=== PATIENT | female | born 2000 | race Two or more races ===

== ENCOUNTER 2021-01-26 19:07 | Emergency (ER) | payer BC ==
--- NOTE | 2021-01-26 19:23 | EDM.PDOC ---
ED HPI GENERAL MEDICAL PROBLEM - General Chief Complaint: Back Pain or Injury Stated Complaint: lower left side back and leg pain Time Seen by Provider: 01/26/21 19:22 - History of Present Illness INITIAL COMMENTS - FREE TEXT/NARRATIVE: 20-year-old female presents the emergency room with back pain. This back pain has been going on for 8 days now. It started after the patient was lifting someone and apparently did not do it correctly. Her pain is localized to the left side of her back and extends down her buttocks and into her thigh but does not go below the knee. She has nothing that sounds like radicular symptoms with this. She has had no loss of bowel or bladder control she said no burning or frequency with urination. The patient is uncertain if she is . Patient denies any other complaints at this time. Treatments REAGENT TENDER: Reports: Acetaminophen, NSAIDS Left Flank Pain Score (Numeric/FACES): 8 - Related Data Allergies Allergy/AdvReac Type Severity Reaction Status Date / Time Penicillins Allergy Rash Verified 01/26/21 19:15 Home Meds: Home Meds Loratadine [Claritin] 10 mg PO BEDTIME PRN 01/26/21 [History] Naproxen 500 mg PO BID #20 tablet 01/26/21 [Rx] Orphenadrine [Norflex] 100 mg PO BID #14 tab 01/26/21 [Rx] ED ROS GENERAL - Review of Systems Review Of Systems: See Below Constitutional: Reports: No Symptoms HEENT: Reports: No Symptoms Respiratory: Reports: No Symptoms Cardiovascular: Reports: No Symptoms. Denies: Chest Pain GI/Abdominal: Reports: No Symptoms. Denies: Abdominal Pain : Reports: No Symptoms Musculoskeletal: Reports: Back Pain, Muscle Pain. Denies: Neck Pain, Shoulder Pain Neurological: Reports: No Symptoms Psychiatric: Reports: No Symptoms ED EXAM, GENERAL - Physical Exam Exam: See Below Exam Limited By: No Limitations General Appearance: Alert, No Apparent Distress Head: Atraumatic, Normocephalic Neck: Normal Inspection, Supple, Non-Tender, Full Range of Motion Respiratory/Chest: No Respiratory Distress, Lungs Clear, Normal Breath Sounds Cardiovascular: Regular Rate, Rhythm, No Edema, No Murmur GI/Abdominal: Normal Bowel Sounds, Soft, Non-Tender Back Exam: Full Range of Motion, Other (Some muscle spasm in the left paraspinous muscles from the lower thoracic area on down around the buttocks and into the thigh. Straight leg raises show localized back pain and buttocks and thigh tightness she has no neurologic deficits in her extremities.). No: CVA Tenderness (L), CVA Tenderness (R), Vertebral Tenderness Course - Vital Signs Last Recorded V/S: Last Vital Signs Temp 36.2 C 01/26/21 19:19 Pulse 87 01/26/21 19:19 Resp 18 01/26/21 19:19 BP 110/68 01/26/21 19:19 Pulse Ox 100 01/26/21 19:19 - Orders/Labs/Meds Labs: Laboratory Tests 01/26/21 01/26/21 Range/Units 19:35 19:35 Urine Color Yellow (Yellow) Urine Appearance Clear (Clear) Urine pH 7.0 (5.0-8.0) Ur Specific Jay Em 1.025 (1.005-1.030) Urine Protein Negative (Negative) Urine Glucose (UA) Negative (Negative) Urine Ketones Negative (Negative) Urine Occult Blood Trace-intact H (Negative) Urine Nitrite Negative (Negative) Urine Bilirubin Negative (Negative) Urine Urobilinogen 0.2 (0.2-1.0) Ur Leukocyte Esterase Negative (Negative) Urine RBC 0-5 (0-5) /hpf Urine WBC 0-5 (0-5) /hpf Ur Epithelial Cells 0-5 (0-5) /hpf Urine Bacteria Rare (FEW) /hpf Urine Mucus Not seen (FEW) /hpf Urine HCG, Qual Negative (NEGATIVE) Meds: Medications Discontinued Medications Generic Name Dose Route Start Last Admin Trade Name Kia PRN Reason Stop Dose Admin Ketorolac Tromethamine 30 mg 01/26/21 20:05 Ketorolac 30 Mg/Ml Sdv IM 01/26/21 20:06 ONETIME ONE - Re-Assessments/Exams Free Text/Narrative Re-Assessment/Exam: 01/26/21 20:06 Urine hCG is negative urinalysis is not suggestive of infectious process. We will start the patient on Norflex and naproxen. Departure - Departure Time of Disposition: 20:09 Disposition: Home, Self-Care 01 Clinical Impression: Low back strain - Discharge Information Referrals: Apurva Jarrell PA-C [Primary Care Provider] - Forms: ED Department Discharge Additional Instructions: Return to the emergency room with any questions problems or worsening symptoms. Follow-up with your regular healthcare provider at the end of this next week if needed. You have been started on 2 medications the first 1 is Naprosyn. This is a Motrin like medication do not take it with Motrin. Take 1 twice daily with meals. You have been started on orphenadrine, or Norflex. This is a muscle relaxant take it twice daily in the beginning and then after you have noticed significant improvement take 1 at night only. Use caution driving or operating hazardous equipment while taking this medication as it can cause sedation. Sepsis Event Note (ED) - Evaluation Sepsis Screening Result: No Definite Risk - Focused Exam Vital Signs: Vital Signs Temp Pulse Resp BP Pulse Ox 01/26/21 19:19 36.2 C 87 18 110/68 100
[2021-01-26] MEDS ORDERED: Ketorolac 30 MG/ML SDV IM ONE (20:05)
== END 2021-01-26 20:24 | disposition home or self-care (01) ==
LOC: JD.ED 19:07
DX: S39.012A Strain of muscle, fascia and tendon of lower back, initial encounter (principal); Z88.0 Allergy status to penicillin; X50.0XXA Overexertion from strenuous movement or load, initial encounter
CPT/HCPCS: 81001; 81025; 96372; 99283; J1885

== ENCOUNTER 2022-06-25 07:08 | Inpatient (IN) | payer BC ==
[~2022-06-25 07:08] MED LIST: Bupivacaine 0.25% 10 ML SDV ONE; Lidocaine 1% 10 ML MDV ONE
[2022-06-25] MEDS ORDERED: Lidocaine 1% 50 ML MDV INJECT SCH (15:40)
[2022-06-25] MEDS ORDERED: Nalbuphine HCl 10 MG/ 1ML Amp IVPUSH PRN (15:40)
[2022-06-25] MEDS ORDERED: Sodium Chloride 0.9% 10 ML Syringe FLUSH PRN (15:40)
[2022-06-25] MEDS ORDERED: Ondansetron 4 MG/2 ML SDV IVPUSH PRN (15:40)
[2022-06-25] MEDS ORDERED: Oxytocin/Lactated Ringers 10 UNIT/1,000 ML BAG IV SCH ×2 (15:45)
[2022-06-25] MEDS ORDERED: Misoprostol 25 MCG (1/4 of 100 MCG) Tab VAG ONE (15:48)
[2022-06-25] MEDS: Clindamycin Phosphate in D5W 900 MG in Premix Bag 1 BAG IV SCH ×2 (16:09)
[2022-06-25] MEDS ORDERED: fentaNYL 100 MCG/2 ML SDV EPIDUR PRN (16:47)
[2022-06-25] MEDS ORDERED: diphenhydrAMINE 50 MG/ML SDV IVPUSH PRN (16:47)
[2022-06-25] MEDS ORDERED: ePHEDrine 50 MG/ML SDV IVPUSH PRN (16:47)
[2022-06-25] MEDS: Misoprostol 25 MCG (1/4 of 100 MCG) Tab VAG SCH ×2 (20:14→23:51)
[2022-06-25] MEDS ORDERED: Sodium Chloride 0.9% 10 ML Syringe FLUSH SCH (21:00)
[2022-06-25] MEDS ORDERED: Loratadine 10 MG Tab PO PRN (21:00)
[2022-06-26] MEDS: Lactated Ringers 1,000 ML IV SCH ×4 (03:14→19:56)
[2022-06-26] MEDS: Clindamycin Phosphate in D5W 900 MG in Premix Bag 1 BAG IV SCH ×6 (03:14→17:43)
[2022-06-26] MEDS: Misoprostol 25 MCG (1/4 of 100 MCG) Tab VAG SCH (03:19)
[2022-06-26] MEDS: Bupivacaine/fentaNYL/NS 100 ML Bag EPIDUR PRN ×2 (10:50→17:48)
[2022-06-26] MEDS ORDERED: Methylergonovine 0.2 MG/1 ML Amp ONE (21:53)
[2022-06-26] MEDS ORDERED: Benzocaine/Menthol 20%-0.5% Spray 78 GM Cannister TOP PRN (22:08)
[2022-06-26] MEDS ORDERED: Witch Hazel Medicated Pads 40/Jar TOP PRN (22:08)
[2022-06-26] MEDS: Ibuprofen 600 MG Tab PO PRN (23:33)
[2022-06-26] MEDS: Docusate Sodium 100 MG Cap PO PRN (23:33)
[2022-06-27] MEDS: Acetaminophen 325 MG Tab PO PRN ×3 (01:58→19:40)
[2022-06-27] MEDS ORDERED: Methylergonovine 0.2 MG/1 ML Amp IM ONE (06:01)
[2022-06-27] MEDS: Ibuprofen 600 MG Tab PO PRN ×3 (09:14→19:40)
[2022-06-27] MEDS: Prenatal Multivitamin with Calcium/Folic Acid/Iron Tab PO SCH (09:15)
[2022-06-27] MEDS: Docusate Sodium 100 MG Cap PO PRN ×2 (12:14→20:42)
[2022-06-28] MEDS: Acetaminophen 325 MG Tab PO PRN (01:26)
[2022-06-28] MEDS: Ibuprofen 600 MG Tab PO PRN ×2 (01:26→06:03)
[2022-06-28] MEDS ORDERED: Ferrous Sulfate 324 MG Tab.EC PO SCH (07:00)
[2022-06-28] MEDS: Prenatal Multivitamin with Calcium/Folic Acid/Iron Tab PO SCH (10:40)
== END 2022-06-28 10:00 | disposition home or self-care (01) | DRG 560 ==
LOC: JD.OB 14:54 → OBSVTOIN 14:54 → JD.OB 06-26 20:52
PROVIDERS: ADMIT Obstetrics & Gynecology; ATTEND Obstetrics & Gynecology
PROC: 10E0XZZ Delivery of Products of Conception, External Approach (ICD-10-PCS; principal; 2022-06-25)
PROC: 3E0R3BZ Introduction of Anesthetic Agent into Spinal Canal, Percutaneous Approach (ICD-10-PCS; 2022-06-25)
PROC: 3E0P7VZ Introduction of Hormone into Female Reproductive, Via Natural or Artificial Opening (ICD-10-PCS; 2022-06-25)
PROC: 10907ZC Drainage of Amniotic Fluid, Therapeutic from Products of Conception, Via Natural or Artificial Opening (ICD-10-PCS; 2022-06-25)
PROC: 10H07YZ Insertion of Other Device into Products of Conception, Via Natural or Artificial Opening (ICD-10-PCS; 2022-06-25)
PROC: 0KQM0ZZ Repair Perineum Muscle, Open Approach (ICD-10-PCS; 2022-06-25)
DX: O99.824 Streptococcus B carrier state complicating childbirth (principal); Z3A.39 39 weeks gestation of pregnancy; Z37.0 Single live birth; O41.1230 Chorioamnionitis, third trimester, not applicable or unspecified; Z88.0 Allergy status to penicillin; O99.02 Anemia complicating childbirth; D64.9 Anemia, unspecified; O77.0 Labor and delivery complicated by meconium in amniotic fluid; O70.1 Second degree perineal laceration during delivery; O76 Abnormality in fetal heart rate and rhythm complicating labor and delivery
CPT/HCPCS: 01967; 36415; 51701; 51702; 59020; 59409; 85025; 86592; 86850; 86900; 86901; A9270-GY; J2210; J2590; J3010; J3490; J7120